=== PATIENT | male | born 1975 ===

== ENCOUNTER 2021-10-08 12:37 | Emergency (ER) | payer OTHER, SELFPAY ==
--- NOTE | 2021-10-08 12:42 | ED_ITS ---
HPI - Extremity Problem General Chief complaint: Extremity Injury, Lower Stated complaint: Right Knee Pain Time Seen by Provider: 10/08/21 12:41 Source: patient Mode of arrival: ambulatory Limitations: no limitations History of Present Illness HPI Narrative: Mr. Serrano is a 46-year-old male patient presenting to the clinic today with complaints of right medial knee pain. He reports this pain is been ongoing for 2 months. He works as a high school math teacher. He does a lot of bending and squatting. He denies any known injury to his right knee. Related Data Allergies Allergy/AdvReac Type Severity Reaction Status Date / Time No Known Allergies Allergy Verified 10/08/21 12:54 Review of Systems Review of Systems: Pertinent positives per HPI. Patient denies any fever, chills, rash, headache, visual changes, dizziness, cough, runny nose, sore throat, shortness of breath, chest pain, palpitations, nausea, vomiting, diarrhea, constipation, abdominal pain, or any urinary issues. PMFSH Comments At the time of my signature, I reviewed and agree with the nursing past medical, surgical, social, and family history. There is no relevant family history pertinent to the patient complaint. Exam Narrative: General: Well-developed, well nourished, in no apparent distress Head: Normocephalic, atraumatic. Cardio: Regular rate and rhythm, s1 and s2 normal, no murmur appreciated. Resp: Clear to auscultation bilaterally, no rhonchi, rales, wheezing or rubs. Musculoskeletal: No deformity, mild swelling to the right medial knee, tender to palpation over the right medial knee, tenderness with valgus varus testing and flexion of the right knee, range of motion limited due to pain muscle strength strong and equal, peripheral pulse strong, no cyanosis, normal gait and station Course Course Emergency Course: Portions of this record may have been created with voice recognition software. Level of Care: Express Care Visit Vital Signs Vital signs: Vital signs reviewed MDM - Extremity (Nontraumatic) MDM Narrative Medical decision making narrative: At the time of visit patient is resting comfortably on the exam table. I suspect the patient has a medial ligament strain versus inflammation. Suppor tive measures were discussed with the patient he voiced understanding of discharge instructions and agrees to the treatment plan. Discharge Plan Discharge Clinical Impression: Sprain of medial collateral ligament of right knee Qualifiers: Encounter type: initial encounter Qualified Code(s): S83.411A - Sprain of medial collateral ligament of right knee, initial encounter Patient Disposition: Home, Self-Care Condition: Stable Instructions: Antibiotic Form, Knee Sprain (ED), Hinged Knee Brace (ED) Additional Instructions: Wear hinged knee brace when up and ambulating. Can purchase these at [employer] Apply ice to the affected area 20 minutes at a time every 2-3 hours Naproxen as prescribed for pain and inflammation Follow-up with your PCP in 1 week if symptoms persist or sooner if they worsen. Prescriptions: New naproxen 500 mg tablet 500 mg PO BID PRN (Reason: pain) 7 Days Qty: 14 0RF Follow-up/Referrals: UNKNOWN,DOCTOR [Non-Staff] - Stand Alone Forms: Work/School Release IP Time of Disposition: 13:09 Quality NIHSS Nursing Documentation ED NIHSS nursing documentation: reviewed/agree
[2021-10-08 12:50] VITALS: BP 108/52; PULSE 58; RESP 20; TEMP 37; O2SAT 100
== END 2021-10-08 13:16 | disposition home or self-care (01) ==
PROVIDERS: Emergency Provider Nurse Practitioner Family
DX: S83.411A Sprain of medial collateral ligament of right knee, initial encounter (principal); X58.XXXA Exposure to other specified factors, initial encounter
CPT/HCPCS: 99213; G0463